=== PATIENT | female | born 1960 | race Caucasian/White ===

== ENCOUNTER 2024-02-24 16:40 | Emergency (ER) | payer SELFPAY ==
[2024-02-24 16:58] VITALS: BP 174/101; PULSE 101; RESP 18; TEMP 36.1; O2SAT 99
--- NOTE | 2024-02-24 17:15 | ED.SKABFB ---
HPI - Skin/Abscess/Foreign Bdy General Chief complaint: Skin/Abscess/Foreign Body Stated complaint: wound to ma Time Seen by Provider: 02/24/24 17:15 Source: patient Mode of arrival: ambulatory Limitations: no limitations History of Present Illness HPI narrative: 63-year-old female presents with complaint of infection to left lower extremity. Two weeks ago patient was taking apart a table. States table was broken into to and have the table slid down the left lower leg. Cause several abrasions to left leg. Three days began to have redness, swelling. Has been applying Neosporin, cleaning with hydrogen peroxide. Redness and swelling getting progressively worse. Reports tenderness. All systems reviewed and negative except as noted above. Related Data Allergies Allergy/AdvReac Type Severity Reaction Status Date / Time No Known Allergies Allergy Verified 02/24/24 17:16 Review of Systems Review of Systems: CONSTITUTIONAL: Denies fever, chills, or sweats. EYES: Denies visual changes, redness, or discharge. ENT: Denies rhinorrhea, congestion, sore throat, or otalgia. CARDIOVASCULAR: Denies chest pain, palpitations, or edema. RESPIRATORY: Denies cough or dyspnea. GASTROINTESTINAL: Denies abdominal pain, nausea, vomiting, or diarrhea. GENITOURINARY: Denies dysuria or hematuria. SKIN: Denies rash or itching. Reports superficial abrasions to left lower extremity with erythema swelling tenderness. MUSCULOSKELETAL: Denies back pain, joint pain, or myalgia. NEUROLOGIC: Denies headache, numbness, or weakness. PSYCHIATRIC: Denies anxiety or depression. All other systems reviewed are negative, except as documented in HPI. PMFSH Comments At time of signature, agree with nursing past medical, surgical, social and family history. There is no relevant family history pertinent to the presenting complaint. Exam Narrative: GENERAL: This is a well-nourished, well-developed patient, in no apparent distress. HEAD: normocephalic, atraumatic. EYES: PERRL. Sclera clear/white. Vision is grossly intact. EARS: External ears normal NOSE: External nose normal NECK: Neck supple, non-tender without lymphadenopathy, masses or thyromegaly. CARDIOVASCULAR: Regular rate and rhythm without murmurs, gallops, or rubs. RESPIRATORY: Clear to auscultation. Breath sounds equal bilaterally. No wheezes, rales, or rhonchi. SKIN: warm, Dry, intact with no suspicious lesions or rash, good texture and turgor. Three superficial abrasions to left lower ma with surrounding erythema. 6cm x 2cm, 8cm x 2cm, 2cm NEURO: awake, alert, and oriented to person, place and time. There were no obvious focal neurologic abnormalities. EXTREMITIES: No joint tenderness, effusion, or edema noted. Course Course Level of Care: Express Care Visit Vital Signs Vital signs: Vital Signs Temperature 36.1 C L 02/24/24 16:58 Pulse Rate 101 H 02/24/24 16:58 Respiratory Rate 18 02/24/24 16:58 Blood Pressure 174/101 H 02/24/24 16:58 Pulse Oximetry 99 02/24/24 16:58 Oxygen Delivery Room Air 02/24/24 16:58 Temperature 36.1 C L 02/24/24 16:58 Pulse Rate 101 H 02/24/24 16:58 Respiratory Rate 18 02/24/24 16:58 Blood Pressure 174/101 H 02/24/24 16:58 Pulse Oximetry 99 02/24/24 16:58 Oxygen Delivery Room Air 02/24/24 16:58 reviewed, the present elevated today. Patient referred to primary care physician for recheck. MDM - Skin/Abscess/Foreign Bdy MDM Narrative Medical decision making narrative: Patient is aware of diagnosis, understands and agrees to treatment plan. Anticipatory guidance given. Patient agrees to follow-up as directed and is aware of reasons to seek care at the emergency department. Portions of this record may have been created with voice recognition software Will prescribe cephalexin today for cellulitis. Patient nontoxic. Distal neurovascularly intact to left lower extremity. Refer to primary care for haley
== END 2024-02-24 17:32 | disposition home or self-care (01) ==
PROVIDERS: Emergency Provider Nurse Practitioner Family
DX: L03.116 Cellulitis of left lower limb (principal); R03.0 Elevated blood-pressure reading, without diagnosis of hypertension
CPT/HCPCS: 99203; G0463